=== PATIENT | male | born 1990 | race American Indian/Alaskan Native ===

== ENCOUNTER 2019-09-16 16:01 | Emergency (ER) | payer SELFPAY ==
[2019-09-16 16:47] VITALS: BP 121/71
--- NOTE | 2019-09-16 16:49 | Event Note ---
ED Screening Note Date of service: 09/16/19 Time: 16:43 ED Screening Note: This is a 29 y.o. M. that presents to the ER with multiple puncture wounds to LLE and right ribs from dog bite. Patient states he was trying to avoid a stray dog from bitting a child in his apartment complex when he attacked him. Dog is unknown to neighbors. This initial assessment/diagnostic orders/clinical plan/treatment(s) is/are subject to change based on patients health status, clinical progression and re-assessment by fellow clinical providers in the ED. Further treatment and workup at subsequent clinical providers discretion. Patient/guardian urged not to elope from the ED as their condition may be serious if not clinically assessed and managed. Initial orders include:
[2019-09-16] MEDS ORDERED: AUGMENTIN 875 MG PO ONE (18:34)
[2019-09-16] MEDS ORDERED: BOOSTRIX IM ONE (18:34)
[2019-09-16] MEDS ORDERED: IBUPROFEN PO ONE (18:34)
--- NOTE | 2019-09-16 18:44 | Emergency Department Report ---
ED Animal Bite HPI - General Chief Complaint: Animal Bite Stated Complaint: RT LEG DOG BITE/PAIN Time Seen by Provider: 09/16/19 16:43 Source: patient Mode of arrival: Ambulatory Limitations: No Limitations - History of Present Illness Initial Comments: Mr. Morales is a 29 yo healthy male without significant past medical history who was bitten several times in the lower extremity by a stray [place] in the neighborhood. He explained that the owners of the dog moved out of the neighborhood long time ago. He does not have any further information on the dog regarding vaccination status. Unknown tetanus status. He has moderately severe pain at the left left leg at the area of the bites. He was also bitten on the right buttock and right lower rib cage. The attack was unprovoked. The dog was chasing down a young boy in the neighborhood. The patient got in the way of the dog in order to protect the young boy. MD Complaint: animal bite -: This afternoon Location: chest, buttocks, other (left lower extremity) Left: Leg, Right: Leg Animal: dog Animal Control Notified: No Mechanism: bite, scratch Severity scale (0 -10): 7 Context: unprovoked Associated Symptoms: bleeding Treatments Prior to Arrival: other (none) - Related Data Patient Tetanus UTD: No Previous Rx's Medication Instructions Recorded Last Taken Type Ibuprofen [Motrin] 600 mg PO Q8H PRN #20 tablet 09/11/18 Unknown Rx Amoxicillin/Potassium Clav 1 each PO BID 7 Days #14 tablet 09/16/19 Unknown Rx [Augmentin 875-125 Tablet] Ibuprofen [Motrin 800 MG tab] 800 mg PO Q8HR PRN #15 tablet 09/16/19 Unknown Rx Allergies Allergy/AdvReac Type Severity Reaction Status Date / Time No Known Allergies Allergy Verified 09/16/19 16:02 ED Review of Systems ROS: Stated complaint: RT LEG DOG BITE/PAIN Other details as noted in HPI Constitutional: denies: fever, malaise Respiratory: denies: shortness of breath Gastrointestinal: denies: abdominal pain, nausea, vomiting Skin: rash, lesions ED Past Medical Hx - Past Medical History Previous Medical History?: No - Surgical History Past Surgical History?: No - Social History Smoking Status: Current Every Day Smoker - Medications Home Medications: Home Medications Medication Instructions Recorded Confirmed Last Taken Type Ibuprofen [Motrin] 600 mg PO Q8H PRN #20 tablet 09/11/18 Unknown Rx Amoxicillin/Potassium Clav 1 each PO BID 7 Days #14 tablet 09/16/19 Unknown Rx [Augmentin 875-125 Tablet] Ibuprofen [Motrin 800 MG tab] 800 mg PO Q8HR PRN #15 tablet 09/16/19 Unknown Rx ED Physical Exam - General Limitations: No Limitations General appearance: alert, in no apparent distress - Head Head exam: Present: atraumatic, normocephalic - Eye Eye exam: Present: normal appearance - ENT ENT exam: Present: mucous membranes moist - Neck Neck exam: Present: normal inspection - Respiratory Respiratory exam: Present: other (right lower rib cage two superficial excoriations with the appearance of scratches). Absent: respiratory distress - Cardiovascular Cardiovascular Exam: Present: regular rate, normal rhythm. Absent: systolic murmur, diastolic murmur, rubs, gallop - GI/Abdominal GI/Abdominal exam: Present: soft, normal bowel sounds. Absent: distended, tenderness, guarding, rebound - Extremities Exam Extremities exam: Present: other (multiple linear excoriations of the right buttock) - Expanded Lower Extremity Exam Left Lower Leg exam: Present: abrasion (right buttock multiple scratch wounds: Left thigh left lower leg multiple puncture wounds with dried blood) Neuro vascular tendon exam: Present: no vascular compromise - Neurological Exam Neurological exam: Present: alert, oriented X3 - Psychiatric Psychiatric exam: Present: normal affect, normal mood - Skin Skin exam: Present: warm, dry, intact, normal color. Absent: rash ED Course Vital Signs 09/16/19 16:45 Temperature 98.5 F Pulse Rate 102 H Respiratory 18 Rate Blood Pressure 121/71 O2 Sat by Pulse 98 Oximetry - Reevaluation(s) Reevaluation #1: 09/16/19 18:42 Mr. Morales presents with multiple puncture wounds and scratches to the left leg right lower rib cage and right buttock. He received TD booster, rabies vaccine, rabies IG. He also received Augmentin and pain control in the emergency department. I have asked staff to contact animal control. Prescribed Augmentin and ibuprofen. Critical care attestation.: If time is entered above; I have spent that time in minutes in the direct care of this critically ill patient, excluding procedure time. ED Disposition Clinical Impression: Dog bite of extremity Disposition: DC-01 TO HOME OR SELFCARE Is pt being admited?: No Does the pt Need Aspirin: No Condition: Stable Instructions: Animal Bite (ED), Rabies Vaccine (Injection) Additional Instructions: He will need to complete the rabies vaccine series. Please contact the local health department as we discussed. ' You will need another rabies vaccine on day 3 TuesdaySeptember 19, day 8 TuesdaySeptember 24, day 15 TuesdayOctober 01 Prescriptions: Amoxicillin/Potassium Clav [Augmentin 875-125 Tablet] 1 each PO BID 7 Days #14 tablet Ibuprofen [Motrin 800 MG tab] 800 mg PO Q8HR PRN #15 tablet PRN Reason: Pain , Severe (7-10)
[2019-09-16] MEDS ORDERED: RABAVERT RABIES VACCINE(PCEC) IM ONE (19:00)
[2019-09-16] MEDS ORDERED: PERCOCET 5/325 PO ONE (19:45)
[2019-09-16] MEDS ORDERED: HYDROGEN PEROXIDE ONE (19:55)
[2019-09-16] MEDS ORDERED: HYDROGEN PEROXIDE TP ONE (19:55)
== END 2019-09-16 20:18 | disposition home or self-care (01) ==
LOC: ED 16:01
DX: S81.852A Open bite, left lower leg, initial encounter (principal); F17.200 Nicotine dependence, unspecified, uncomplicated; W54.0XXA Bitten by dog, initial encounter; Y93.89 Activity, other specified; Y92.89 Other specified places as the place of occurrence of the external cause; Y99.8 Other external cause status
CPT/HCPCS: 90375; 90471; 90472; 90675; 90715; 96372

== ENCOUNTER 2021-09-19 01:33 | Emergency (ER) | payer SELFPAY ==
[2021-09-19 02:05] VITALS: BP 131/53
--- NOTE | 2021-09-19 04:05 | XRay Report ---
Right fingers 4 views INDICATION: Laceration FINDINGS: Degenerative change and base of the thumb. No foreign body seen in soft tissues. Mild flexi on of the fifth PIP joint. Soft tissue laceration in the base of the thumb. Tiny punctate density is somewhat linear adjacent to the metacarpal base and small foreign body cannot be excluded. Signer Name: Kalen Mckeon MD Signed: 09/19/2021 4:01 AM Workstation Name: [id number]
--- NOTE | 2021-09-19 04:28 | Emergency Department Report ---
ED Upper Extremity Inj HPI - General Chief Complaint: Wound/Laceration Stated Complaint: CUT HAND Time Seen by Provider: 09/19/21 03:37 Source: patient Mode of arrival: Ambulatory Limitations: No Limitations - History of Present Illness Initial Comments: 31-year-old right-handed male presents emerge department complaining of laceration at the base of his s phalange of the right hand secondary to glass resulting in decreased range of motion primarily extension of the joint and pain as well as bleeding. Them to control some of the bleeding with compression prior to arrival. Tetanus shot is up-to-date MD Complaint: Injury to:: right, finger -: Gradual Other Extremity Injury: Fingers: Right Handedness: right Place: home Worsens With: none Context: laceration, injury Associated Symptoms: denies other symptoms - Related Data Previous Rx's Medication Instructions Recorded Last Taken Type Ibuprofen [Motrin] 600 mg PO Q8H PRN #20 tablet 09/11/18 Unknown Rx Amoxicillin/Potassium Clav 1 each PO BID 7 Days #14 tablet 09/16/19 Unknown Rx [Augmentin 875-125 Tablet] Ibuprofen [Motrin 800 MG tab] 800 mg PO Q8HR PRN #15 tablet 09/16/19 Unknown Rx Acetaminophen/Codeine [Tylenol 1 tab PO Q6H PRN #10 tab 09/19/21 Unknown Rx /Codeine # 3 tab] cephALEXin [Keflex] 500 mg PO Q6HR #20 capsule 09/19/21 Unknown Rx Allergies Allergy/AdvReac Type Severity Reaction Status Date / Time No Known Allergies Allergy Verified 09/16/19 16:02 ED Review of Systems ROS: Stated complaint: CUT HAND Other details as noted in HPI Comment: All other systems reviewed and negative ED Past Medical Hx - Past Medical History Previous Medical History?: No - Surgical History Past Surgical History?: No - Social History Smoking Status: Current Every Day Smoker - Medications Home Medications: Home Medications Medication Instructions Recorded Confirmed Last Taken Type Ibuprofen [Motrin] 600 mg PO Q8H PRN #20 tablet 09/11/18 Unknown Rx Amoxicillin/Potassium Clav 1 each PO BID 7 Days #14 tablet 09/16/19 Unknown Rx [Augmentin 875-125 Tablet] Ibuprofen [Motrin 800 MG tab] 800 mg PO Q8HR PRN #15 tablet 09/16/19 Unknown Rx Acetaminophen/Codeine [Tylenol 1 tab PO Q6H PRN #10 tab 09/19/21 Unknown Rx /Codeine # 3 tab] cephALEXin [Keflex] 500 mg PO Q6HR #20 capsule 09/19/21 Unknown Rx ED Physical Exam - General Limitations: No Limitations General appearance: alert, in no apparent distress - Head Head exam: Present: atraumatic, normocephalic - Eye Eye exam: Present: normal appearance, PERRL, EOMI Pupils: Present: normal accommodation - ENT ENT exam: Present: normal exam, normal orophraynx, mucous membranes moist, TM's normal bilaterally - Neck Neck exam: Present: normal inspection, full ROM - Respiratory Respiratory exam: Present: normal lung sounds bilaterally. Absent: respiratory distress, wheezes, rales, chest wall tenderness, accessory muscle use - Cardiovascular Cardiovascular Exam: Present: regular rate, normal rhythm. Absent: systolic murmur, diastolic murmur, rubs, gallop - GI/Abdominal GI/Abdominal exam: Present: soft, normal bowel sounds. Absent: distended, tenderness - Rectal Rectal exam: Present: deferred - Extremities Exam Extremities exam: Present: normal inspection, tenderness (Tenderness at the base of the right thumb linear laceration versus puncture decreased range of motion unable to extend thumb form of flexion is mostly intact. Cap refills are brisk pulses 2+.. There is), normal capillary refill. Absent: pedal edema, joint swelling, calf tenderness - Back Exam Back exam: Present: normal inspection - Neurological Exam Neurological exam: Present: alert, oriented X3 - Psychiatric Psychiatric exam: Present: normal affect, normal mood - Skin Skin exam: Present: warm, dry, intact, normal color. Absent: rash ED Course Vital Signs 09/19/21 09/19/21 02:03 02:05 Temperature 98.5 F Pulse Rate 81 Respiratory 14 Rate Blood Pressure 131/53 O2 Sat by Pulse 97 Oximetry - Laceration /Wound Repair Right Finger Wound Location: upper extremity Wound Length (cm): 2 Wound's Depth, Shape: linear Betadine Prep?: Yes Anesthesia: 1% Lidocaine Wound Debrided: minimal Wound Repaired With: sutures Suture Size/Type: proline Layer Closure?: No Sterile Dressing Applied?: Yes - Orthopedic Splinting/Casting Injury #1 Side: right Upper Extremity Injury Location: hand Upper Extremity Immobilizer: finger (other) Critical care attestation.: If time is entered above; I have spent that time in minutes in the direct care of this critically ill patient, excluding procedure time. ED Disposition Clinical Impression: Laceration of thumb with tendon involvement Disposition: 01 HOME / SELF CARE / HOMELESS Is pt being admited?: No Does the pt Need Aspirin: No Condition: Stable Instructions: Laceration Care, Adult, Laceration Care, Adult, [id number], Sutures, Jamar, or Adhesive Wound Closure, [id number] Prescriptions: cephALEXin [Keflex] 500 mg PO Q6HR #20 capsule Acetaminophen/Codeine [Tylenol /Codeine # 3 tab] 1 tab PO Q6H PRN #10 tab PRN Reason: Pain , Severe (7-10) Referrals: MINDY UPTON MD [Primary Care Provider] - 3-5 Days
== END 2021-09-19 05:37 | disposition home or self-care (01) ==
LOC: ED 01:33
DX: S61.011A Laceration without foreign body of right thumb without damage to nail, initial encounter (principal); F17.200 Nicotine dependence, unspecified, uncomplicated; W25.XXXA Contact with sharp glass, initial encounter; Y93.89 Activity, other specified; Y92.89 Other specified places as the place of occurrence of the external cause; Y99.8 Other external cause status
CPT/HCPCS: 99283

== ENCOUNTER 2021-10-14 17:07 | Emergency (ER) | payer SELFPAY ==
[2021-10-14 17:17] VITALS: BP 118/85
--- NOTE | 2021-10-14 17:58 | Emergency Department Report ---
Suture/Staple Removal - [facility] Chief Complaint: Laceration/Recheck/Suture Stated Complaint: SUTURE REMOVAL Time Seen by Provider: 10/14/21 17:55 When Sutures or Jamar Placed: 8-10 Days Ago Wound Location: Right hand at the base of the thumb suture x3 here for removal ED Review of Systems ROS: Stated complaint: SUTURE REMOVAL Other details as noted in HPI Comment: All other systems reviewed and negative Suture Removal Exam - Exam General: Vital signs noted. No distress. Alert and acting appropriately. Wound: No Pathologic Erythema, No Tenderness, No Drainage, No Pus, No Wound Dehiscence Other Systems: All other systems reviewed and are unremarkable. Was seen a week ago for a laceration to the base of the right thumb with possible tendon involvement still has no range of motion of the thumb but not yet follow-up with orthopedic. No signs of infection wound is clean dry ED Course Vital Signs 10/14/21 17:15 Temperature 98.3 F Pulse Rate 84 Respiratory 18 Rate Blood Pressure 118/85 [Left] O2 Sat by Pulse 100 Oximetry ED Recheck MDM - Medical Decision Making Encourage follow-up with the orthopedic and him to wear a thumb spica splint as needed for for comfort Critical care attestation.: If time is entered above; I have spent that time in minutes in the direct care of this critically ill patient, excluding procedure time. ED Disposition Clinical Impression: Visit for suture removal Disposition: 01 HOME / SELF CARE / HOMELESS Is pt being admited?: No Does the pt Need Aspirin: No Condition: Stable Instructions: Wound Closure Removal, Care After Referrals: [facility] [Provider Group] - 3-5 Days
== END 2021-10-14 17:55 | disposition home or self-care (01) ==
LOC: ED 17:07 → MERGE 17:07 → ED 17:55
DX: S61.011D Laceration without foreign body of right thumb without damage to nail, subsequent encounter (principal); X58.XXXD Exposure to other specified factors, subsequent encounter
CPT/HCPCS: 99281